=== PATIENT | female | born 1995 | race Caucasian/White ===

== ENCOUNTER 2017-02-06 19:19 | Emergency (ER) | END 2017-02-06 20:00 | disposition home or self-care (01) | DX: J02.9 Acute pharyngitis, unspecified (principal) | CPT/HCPCS: Z7502; Z7610 ==

== ENCOUNTER 2018-03-05 20:52 | Emergency (ER) | END 2018-03-06 00:41 | disposition home or self-care (01) ==

== ENCOUNTER 2019-02-05 15:55 | Emergency (ER) | payer OTHER ==
[~2019-02-05] VITALS: Ht 152.4 cm; Wt 94.6 kg
[~2019-02-05 15:55] MED LIST: AMOX500C2 PO; BEN25 PO; CLOT30CR24 TOP; IBUP-1542 PO; LIDO20SO19 MM; PRED20TA PO
[2019-02-05 15:57] VITALS: BP 143/67; PULSE 77; RESP 16; Ht 152.4 cm; Wt 94.6 kg
[2019-02-05] MEDS ORDERED: CEPH-443 PO (17:50)
[2019-02-05] MEDS ORDERED: HC30CR25 TOP (17:50)
--- NOTE | 2019-02-05 17:53 | ERD ---
ER Documentation Chief Complaint Chief Complaint rash on face since morning HPI 23-year-old female presents with a rash on her chin since this morning. She denies any known exposures or new creams or inciting events except for excising some blackheads in the area the day before. She has pain and itching. She cisco es any fevers, vomiting, shortness of breath, chest pain, sore throat, additional symptoms. ROS All systems reviewed and are negative except as per history of present illness. Medications Home Meds Active Scripts Cephalexin* (Keflex*) 500 Mg Capsule, 500 MG PO QID for 7 Days, CAP Prov:SARAH SAMPSON MD 02/05/19 Hydrocortisone* Topical (Hydrocortisone* Topical) 2.5%-28.3 Gm Cream..g., 1 APPLIC TOP BID for 7 Days, #1 TUB Prov:SARAH SAMPSON MD 02/05/19 Clotrimazole* (Clotrimazole* AF) 1% - 30 Gm Cream.gm., 1 APPLIC TOP BID for 7 Days, #1 TUB Prov:JOAQUIN JONES PA-C 03/06/18 Diphenhydramine Hcl* (Benadryl*) 25 Mg Cap, 25 MG PO Q6, #30 CAP Prov:JOAQUIN JONES PA-C 03/06/18 Prednisone* (Prednisone*) 20 Mg Tab, 40 MG PO DAILY for 4 Days, TAB Prov:JOAQUIN JONES PA-C 03/06/18 Lidocaine (Lidocaine Viscous) 100 Ml Soln, 10 ML MM BID, #100 ML Prov:MOSES PONCE PA-C 02/06/17 Ibuprofen* (Motrin*) 600 Mg Tab, 600 MG PO Q6, #30 TAB Prov:MOSES PONCE PA-C 02/06/17 Amoxicillin* (Amoxicillin*) 500 Mg Cap, 500 MG PO TID for 10 Days, CAP Prov:MOSES PONCE PA-C 02/06/17 Reported Medications [None] No Conflict Check 03/09/11 Allergies Allergies: Coded Allergies: No Known Drug Allergies (Verified Allergy, Unknown, 02/06/17) Uncoded Allergies: NONE (Allergy, Unknown, 02/06/17) PMhx/Soc History of Surgery: No Anesthesia Reaction: No Hx Neurological Disorder: No Hx Respiratory Disorders: No Hx Cardiac Disorders: No Hx Psychiatric Problems: No Hx Miscellaneous Medical Probl: No Hx Alcohol Use: No Hx Substance Use: No Hx Tobacco Use: No FmHx Family History: No diabetes, No coronary disease, No other Physical Exam Vitals Vital Signs Date Temp Pulse Resp B/P (MAP) Pulse Ox O2 O2 Flow FiO2 Time Delivery Rate 02/05/19 97.4 77 16 143/67 99 15:57 (92) Physical Exam Const: No acute distress Head: Atraumatic Eyes: Normal Conjunctiva ENT: Normal External Ears, Nose and Mouth. Neck: Full range of motion. No meningismus. Resp: Clear to auscultation bilaterally Cardio: Regular rate and rhythm, no murmurs Abd: Soft, non tender, non distended. Normal bowel sounds Skin: No petechiae or purpura. Irritation possible early vesicle on the chin without erythema, induration. Back: No midline or flank tenderness Ext: No cyanosis, or edema Neur: Awake and alert Psych: Normal Mood and Affect Procedures/MDM Patient presents with a lesion on the chin which appears to be early vascular clinical appearance of chemical irritation no chemical burn. May be early secondary infection to unspecified irritation. Will treat empirically with hydrocortisone, Keflex, recommended conditions for A&D ointment, wound care avoidance of sun, primary care follow-up and return precautions for worsening redness, fevers, new or worsening symptoms. She has no signs of necrotizing fasciitis, purpura, life-threatening rashes. The patient was stable with no new complaints during the ER course. Clinically, there is no current evidence to suggest meningitis, sepsis, acute abdomen, pneumonia, stroke, acute coronary syndrome, pulmonary embolism, aortic dissection or any other emergent condition appearing to require further evaluation or hospitalization. Patient counseled regarding my diagnostic impression and care plan. Prior to discharge all questions answered. Pt agrees with treatment plan and understands strict return precautions. Pt is instructed to follow up with primary care provider within 24- 48 hours. Precautionary instructions provided including instructions to return to the ER if not improving or for any worsening or changing symptoms or concerns. Disclaimer: Inadvertent spelling and grammatical errors are likely due to EHR/dictation software use and do not reflect on the overall quality of patient care. Also, please note that the electronic time recorded on this note does not necessarily reflect the actual time of the patient encounter. Departure Diagnosis: Primary Impression: Rash Condition: Stable Patient Instructions: Dermatitis, Non-Specific Referrals: NO PRIMARY,CARE PHYSICIAN (PCP) Additional Instructions: Appears to be some type of local reaction or chemical irritation. Recheck for worsening redness, fevers, new worsening symptoms. Avoid sun until lesions SARAH Burrows MD Feb 05, 2019 17:53
== END 2019-02-05 18:01 | disposition home or self-care (01) ==
LOC: FTE 15:55
DX: R21 Rash and other nonspecific skin eruption (principal)
CPT/HCPCS: 99283

== ENCOUNTER 2019-02-27 23:58 | Emergency (ER) | payer OTHER ==
[~2019-02-27] VITALS: Ht 152.4 cm; Wt 93.9 kg
[~2019-02-27 23:58] MED LIST changes: +CEPH-443 PO; +HC30CR25 TOP
[2019-02-28 00:07] VITALS: Ht 152.4 cm; Wt 93.9 kg
[2019-02-28] MEDS ORDERED: SOD CHLORIDE 0.9% 1,000 ML IV STA ×2 (01:17→02:57)
[2019-02-28] MEDS ORDERED: KETOROLAC 15 MG INJ IV STA (01:17)
--- NOTE | 2019-02-28 01:45 | ERD ---
ER Documentation Chief Complaint Chief Complaint RT FLANK PAIN STARTING YESTERDAY HPI This is a 23-year-old female who presents to the emergency room complaining right upper quadrant abdominal pain radiating to the back. The patient skips 2 days of symptoms of generalized malaise and pain to this area. She is noted to have a low-grade fever at triage. The pain is moderate and sharp with slight radiation symptoms. No clear exacerbating or alleviating factors. She denies any chest pain, no pleuritic discomfort, no nausea vomiting or diarrhea. No migratory pain to the right lower quadrant. ROS All systems reviewed and are negative except as per history of present illness. Medications Home Meds Active Scripts Ibuprofen* (Motrin*) 800 Mg Tab, 800 MG PO Q6H PRN for PAIN AND OR ELEVATED TEMP, #30 TAB Prov:JV SCHOFIELD MD 02/28/19 Cephalexin* (Keflex*) 500 Mg Capsule, 500 MG PO QID for 7 Days, CAP Prov:SARAH SAMPSON MD 02/05/19 Hydrocortisone* Topical (Hydrocortisone* Topical) 2.5%-28.3 Gm Cream..g., 1 APPLIC TOP BID for 7 Days, #1 TUB Prov:SARAH SAMPSON MD 02/05/19 Clotrimazole* (Clotrimazole* AF) 1% - 30 Gm Cream.gm., 1 APPLIC TOP BID for 7 Days, #1 TUB Prov:JOAQUIN JONES PA-C 03/06/18 Diphenhydramine Hcl* (Benadryl*) 25 Mg Cap, 25 MG PO Q6, #30 CAP Prov:JOAQUIN JONES PA-C 03/06/18 Prednisone* (Prednisone*) 20 Mg Tab, 40 MG PO DAILY for 4 Days, TAB Prov:JOAQUIN JONES PA-C 03/06/18 Lidocaine (Lidocaine Viscous) 100 Ml Soln, 10 ML MM BID, #100 ML Prov:MOSES PONCE PA-C 02/06/17 Ibuprofen* (Motrin*) 600 Mg Tab, 600 MG PO Q6, #30 TAB Prov:MOSES PONCE PA-C 02/06/17 Amoxicillin* (Amoxicillin*) 500 Mg Cap, 500 MG PO TID for 10 Days, CAP Prov:MOSES PONCE PA-C 02/06/17 Reported Medications [None] No Conflict Check 03/09/11 Allergies Allergies: Coded Allergies: No Known Drug Allergies (Verified Allergy, Unknown, 02/06/17) Uncoded Allergies: NONE (Allergy, Unknown, 02/06/17) PMhx/Soc Medical and Surgical Hx: pt denies Medical Hx, pt denies Surgical Hx History of Surgery: No Anesthesia Reaction: No Hx Neurological Disorder: No Hx Respiratory Disorders: No Hx Cardiac Disorders: No Hx Psychiatric Problems: No Hx Miscellaneous Medical Probl: No Hx Alcohol Use: Yes (OCC) Hx Substance Use: No Hx Tobacco Use: No Smoking Status: Never smoker FmHx Family History: No diabetes Physical Exam Vitals Vital Signs Date Temp Pulse Resp B/P (MAP) Pulse Ox O2 O2 Flow FiO2 Time Delivery Rate 02/28/19 98.4 120 20 114/68 100 Room Air 01:48 (83) 02/28/19 100.2 120 16 121/65 99 00:07 (83) Physical Exam General: Well developed, well nourished, no acute distress Head: Normocephalic, atraumatic. Eyes: Pupils equally reactive, EOM intact ENT: Moist mucous membranes Neck: Supple, no lymphadenopathy Respiratory: Lungs clear bilaterally, no distress Cardiovascular: RRR, no murmurs, rubs, or gallops Abdominal: Soft, tenderness located to the right upper quadrant with a soft Junior sign. Negative tenderness to McBurney's point : Deferred MSK: No edema, no unilateral swelling, 5/5 strength Neurologic: Alert and oriented, moving all extremities, normal speech, no focal weakness, no cerebellar signs Skin: No rash Psych: Normal mood Result Diagram: 02/28/19 0120 02/28/19 0120 Results 24 hrs Laboratory Tests Test 02/28/19 01:20 02/28/19 01:38 02/28/19 01:40 White Blood Count 11.4 10^3/ul Red Blood Count 3.96 10^6/ul Hemoglobin 11.3 g/dl Hematocrit 34.1 % Mean Corpuscular Volume 86.1 fl Mean Corpuscular Hemoglobin 28.5 pg Mean Corpuscular 33.1 g/dl Hemoglobin Concent Red Cell Distribution Width 11.9 % Platelet Count 431 10^3/UL Mean Platelet Volume 9.3 fl Immature Granulocytes % 0.300 % Neutrophils % 76.0 % Lymphocytes % 14.7 % Monocytes % 7.8 % Eosinophils % 0.9 % Basophils % 0.3 % Nucleated Red Blood Cells % 0.0 /100WBC Immature Granulocytes # 0.040 10^3/ul Neutrophils # 8.7 10^3/ul Lymphocytes # 1.7 10^3/ul Monocytes # 0.9 10^3/ul Eosinophils # 0.1 10^3/ul Basophils # 0.0 10^3/ul Nucleated Red Blood Cells # 0.0 10^3/ul Prothrombin Time 13.8 Sec Prothrombin Time Ratio 1.1 INR International Normalized Ratio 1.05 Activated Partial Thromboplast 35.9 Sec Time D-Dimer 2256.67 ng/ml D-Dimer Comment Sodium Level 141 mmol/L Potassium Level 3.6 mmol/L Chloride Level 105 mmol/L Carbon Dioxide Level 25 mmol/L Anion Gap 11 Blood Urea Nitrogen 13 mg/dl Creatinine 0.73 mg/dl Est Glomerular Filtrat Rate mL/min > 60 mL/min Glucose Level 104 mg/dl Calcium Level 9.2 mg/dl Total Bilirubin 0.5 mg/dl Direct Bilirubin 0.00 mg/dl Indirect Bilirubin 0.5 mg/dl Aspartate Amino Transf (AST/SGOT) 31 IU/L Alanine 43 IU/L Aminotransferase (ALT/SGPT) Alkaline Phosphatase 103 IU/L Total Protein 7.7 g/dl Albumin 4.0 g/dl Globulin 3.70 g/dl Albumin/Globulin Ratio 1.08 Lipase 54 U/L Bedside Urine pH (LAB) 6.0 Bedside Urine Protein (LAB) Negative Bedside Urine Glucose (UA) Negative Bedside Urine Ketones (LAB) 1+ Bedside Urine Blood 2+ Bedside Urine Nitrite (LAB) Negative Bedside Urine Leukocyte Esterase Trace (L POC Beta HCG, Qualitative NEGATIVE Current Medications Medications Dose Sig/Luz Start Time Status Last (Trade) Ordered Route PRN Stop Time Admin Dose Reason Admin Sodium 1,000 ml @ Q1H STAT 02/28/19 DC 02/28/19 Chloride 1,000 mls/hr IV 01:17 01:43 02/28/19 02:16 Ketorolac 15 mg ONCE STAT 02/28/19 DC 02/28/19 Tromethamine IV 01:17 01:43 (Toradol) 02/28/19 01:18 Sodium 1,000 ml @ Q1H STAT 02/28/19 DC 02/28/19 Chloride 1,000 mls/hr IV 02:57 03:40 02/28/19 03:56 IV Flush 10 ml STK-MED 02/28/19 DC 02/28/19 (NS 10 ml) ONCE .ROUTE 03:03 03:29 02/28/19 03:04 Sodium 100 ml @ ud STK-MED 02/28/19 DC 02/28/19 Chloride ONCE .ROUTE 03:03 03:29 02/28/19 03:04 Iohexol 100 ml @ ud STK-MED 02/28/19 DC 02/28/19 ONCE .ROUTE 03:03 03:28 02/28/19 03:04 Procedures/MDM EKG, MONITORS, & DIAGNOSTIC IMAGING: Ultrasound of the gallbladder: No acute process noted Chest x-ray: I reviewed and interpreted a 1 view of the chest Mediastinum: No enlargement Cardiac silhouette: No cardiomegaly Airspace: Clear lung story bilaterally without evidence of pneumothorax Bones: No evidence of fracture CT PE IMPRESSION: 1. No pulmonary embolus is appreciated. 2. Slight dependent changes are noted in both lungs without evidence for pneumonia. 3. Tiny left lower lobe pulmonary nodule is noted. LAB INTERPRETATION: I reviewed the laboratory testing and it shows positive d-dimer MEDICAL DECISION MAKING: The patient's presentation is concerning for biliary colic versus early acute cholecystitis. The patient has no signs or symptoms concerning for cardiopulmonary process, vascular process. No evidence of pulmonary embolism. Patient will benefit from ultrasound imaging of the gallbladder, laboratory testing. IV fluids and antipyretics will be initiated. The patient does not initially have Sirs criteria therefore code sepsis was not initiated. ER COURSE: * The patient symptoms were improving with IV fluids and nonsteroidal anti-inflammatory. However the patient's ultrasound was unremarkable. The patient was reinterviewed and did describe some mild pleuritic component. A d-dimer was sent, chest x-ray was ordered. D-dimer was elevated prompting CTPA * CT of the chest is negative for pulmonary embolism. The patient's vital signs have normalized. At this point no clear etiology as to the patient's symptoms, consider possible peptic ulcer disease versus nonspecific viral process. Pleurisy is possible, costochondritis is possible or abdominal spasm. However, the patient is well-appearing, symptoms improved and laboratory testing is unremarkable. No indication at this time for CT imaging of abdomen pelvis. Patient can be safely discharged with close primary care follow-up. Return precautions were discussed and understood. CONSULTATION: None DISPOSITION PLAN: The patient does not have an identifiable emergent medical condition that warrants inpatient hospitalization at this time. The patient is deemed safe for discharge with outpatient follow-up. We discussed follow up with the patient's primary care doctor within 24 to 48 hours as needed. We also discussed return to the emergency room for worsening symptoms or worsening condition. Outpatient referral: None required Discharge Medications: Motrin Departure Diagnosis: Primary Impression: Right upper quadrant abdominal pain Condition: Stable JV SCHOFIELD MD Feb 28, 2019 01:45
[2019-02-28] MEDS ORDERED: SOD CHLORIDE 0.9% 100 ML ONE (03:03)
[2019-02-28] MEDS ORDERED: IOHEXOL 100 ML ONE (03:03)
[2019-02-28] MEDS ORDERED: IBUP800T48 PO (05:31)
[2019-02-28 05:33] VITALS: BP 117/79; PULSE 87; RESP 15
== END 2019-02-28 05:39 | disposition home or self-care (01) ==
LOC: E/R 23:58
DX: R10.11 Right upper quadrant pain (principal)
CPT/HCPCS: 71045; 71275; 76705; 80053; 81003; 81025; 83690; 85025; 85378; 85610; 85730; J1885; J7030; Q9967; Z7610; 36415; 96374

== ENCOUNTER 2019-03-01 22:14 | Emergency (ER) | payer OTHER ==
[~2019-03-01] VITALS: Ht 157.5 cm; Wt 93.8 kg
[~2019-03-01 22:14] MED LIST changes: +IBUP800T48 PO
[2019-03-01 22:19] VITALS: Ht 157.5 cm; Wt 93.8 kg
--- NOTE | 2019-03-01 23:18 | ERD ---
ER Documentation Chief Complaint Chief Complaint LEFT SIDED CHEST PAIN/TIGHTNESS X 1 HOUR. HPI 23-year-old female presents with complaint of left-sided chest tightness for the past hour Patient was just here yesterday and was complaining of abdominal pain and received a CT pulmo angiogram n due to elevated d-dimer. Results were w ithin normal limits. Patient says she has been googling symptoms and thinks she might just have anxiety. Patient denies any chest pain, shortness of breath, nausea, vomiting, diaphoresis, leg swelling, dyspnea, cough, hemoptysis. ROS All systems reviewed and are negative except as per history of present illness. Medications Home Meds Active Scripts Ibuprofen* (Motrin*) 800 Mg Tab, 800 MG PO Q6H PRN for PAIN AND OR ELEVATED TEMP, #30 TAB Prov:JV SCHOFIELD MD 02/28/19 Cephalexin* (Keflex*) 500 Mg Capsule, 500 MG PO QID for 7 Days, CAP Prov:SARAH SAMPSON MD 02/05/19 Hydrocortisone* Topical (Hydrocortisone* Topical) 2.5%-28.3 Gm Cream..g., 1 APPLIC TOP BID for 7 Days, #1 TUB Prov:SARAH SAMPSON MD 02/05/19 Clotrimazole* (Clotrimazole* AF) 1% - 30 Gm Cream.gm., 1 APPLIC TOP BID for 7 Days, #1 TUB Prov:JOAQUIN JONES PA-C 03/06/18 Diphenhydramine Hcl* (Benadryl*) 25 Mg Cap, 25 MG PO Q6, #30 CAP Prov:JOAQUIN JONES PA-C 03/06/18 Prednisone* (Prednisone*) 20 Mg Tab, 40 MG PO DAILY for 4 Days, TAB Prov:JOAQUIN JONES PA-C 03/06/18 Lidocaine (Lidocaine Viscous) 100 Ml Soln, 10 ML MM BID, #100 ML Prov:MOSES PONCE PA-C 02/06/17 Ibuprofen* (Motrin*) 600 Mg Tab, 600 MG PO Q6, #30 TAB Prov:MOSES PONCE PA-C 02/06/17 Amoxicillin* (Amoxicillin*) 500 Mg Cap, 500 MG PO TID for 10 Days, CAP Prov:MOSES PONCE PA-C 02/06/17 Reported Medications [None] No Conflict Check 03/09/11 Allergies Allergies: Coded Allergies: No Known Drug Allergies (Verified Allergy, Unknown, 02/06/17) Uncoded Allergies: NONE (Allergy, Unknown, 02/06/17) PMhx/Soc History of Surgery: No Anesthesia Reaction: No Hx Neurological Disorder: No Hx Respiratory Disorders: No Hx Cardiac Disorders: No Hx Psychiatric Problems: No Hx Miscellaneous Medical Probl: No Hx Alcohol Use: Yes (OCC) Hx Substance Use: No Hx Tobacco Use: No FmHx Family History: No diabetes, No coronary disease, No other Physical Exam Vitals Vital Signs Date Temp Pulse Resp B/P (MAP) Pulse Ox O2 O2 Flow FiO2 Time Delivery Rate 03/01/19 97.8 85 20 138/72 99 22:19 (94) Physical Exam Const: No acute distress Head: Atraumatic Eyes: Normal Conjunctiva ENT: Normal External Ears, Nose and Mouth. Neck: Full range of motion. No meningismus. Resp: Clear to auscultation bilaterally Cardio: Regular rate and rhythm, no murmurs Abd: Soft, non tender, non distended. Normal bowel sounds Skin: No petechiae or rashes Back: No midline or flank tenderness Ext: No cyanosis, or edema Neur: Awake and alert Psych: Normal Mood and Affect Result Diagram: 03/01/19232203/01/192322 Results 24 hrs Laboratory Tests Test 03/01/19 23:23 03/01/19 23:38 White Blood Count 7.7 10^3/ul Red Blood Count 3.85 10^6/ul Hemoglobin 11.1 g/dl Hematocrit 33.5 % Mean Corpuscular Volume 87.0 fl Mean Corpuscular Hemoglobin 28.8 pg Mean Corpuscular Hemoglobin Concent 33.1 g/dl Red Cell Distribution Width 11.9 % Platelet Count 447 10^3/UL Mean Platelet Volume 9.2 fl Immature Granulocytes % 0.300 % Neutrophils % 66.0 % Lymphocytes % 25.6 % Monocytes % 6.2 % Eosinophils % 1.6 % Basophils % 0.3 % Nucleated Red Blood Cells % 0.0 /100WBC Immature Granulocytes # 0.020 10^3/ul Neutrophils # 5.1 10^3/ul Lymphocytes # 2.0 10^3/ul Monocytes # 0.5 10^3/ul Eosinophils # 0.1 10^3/ul Basophils # 0.0 10^3/ul Nucleated Red Blood Cells # 0.0 10^3/ul Sodium Level 137 mmol/L Potassium Level 4.2 mmol/L Chloride Level 106 mmol/L Carbon Dioxide Level 25 mmol/L Anion Gap 6 Blood Urea Nitrogen 9 mg/dl Creatinine 0.61 mg/dl Est Glomerular Filtrat Rate mL/min > 60 mL/min Glucose Level 98 mg/dl Calcium Level 9.1 mg/dl Total Bilirubin 0.2 mg/dl Direct Bilirubin 0.00 mg/dl Indirect Bilirubin 0.2 mg/dl Aspartate Amino Transf (AST/SGOT) 30 IU/L Alanine Aminotransferase (ALT/SGPT) 43 IU/L Alkaline Phosphatase 103 IU/L Troponin I < 0.012 ng/ml Total Protein 7.9 g/dl Albumin 4.0 g/dl Globulin 3.90 g/dl Albumin/Globulin Ratio 1.02 POC Beta HCG, Qualitative NEGATIVE Procedures/MDM EKG: Rate/Rhythm: Normal Sinus Rhythm QRS, ST, T-waves: No changes consistent w/ acute ischemia Impression: No evidence of ischemia or arrhythmia MDM: CBC, CMP, troponin, EKG, chest x-ray ordered. All results within normal limits. I have low suspicition for acute coronary syndrome, pulmonary embolism, aortic dissection, AAA, pneumothorax, esophageal rupture, pericarditis, myoca rditis, or pneumonia based on EKG, imaging, labs, patient history and exam. At this time, patient is stable for discharge and outpatient management. I have instructed the patient to follow-up with his/her primary care physician in 1-2 days. I have discussed with the patient the possibility of needing to see a specialist for further workup and imaging studies if symptoms persist. I have instructed the patient to promptly return to the ER for any new or worsening symptoms including but not limited to increased pain, fever, nausea, vomiting, weakness or LOC. The patient and/or family expressed understanding of and agreement with this plan. All questions were answered. Home care instructions w ere provided. DISCLAIMER: Inadvertent spelling and grammatical errors are likely due to EHR/dictation software use and do not reflect on the overall quality of patient care. Also, please note that the electronic time recorded on this note does not necessarily reflect the actual time of the patient encounter. Departure Diagnosis: Primary Impression: Chest pressure Condition: Stable STORMY ALMODOVAR Mar 01, 2019 23:18
[2019-03-02 00:29] VITALS: BP 128/58; PULSE 74; RESP 17
== END 2019-03-02 00:29 | disposition home or self-care (01) ==
LOC: FTE 22:14
DX: R07.89 Other chest pain (principal)
CPT/HCPCS: 36415; 71045; 80053; 81025; 84484; 85025; 93005; Z7502